=== PATIENT | male | born 1995 | race Caucasian/White ===

== ENCOUNTER 2018-12-31 19:46 | Emergency (ER) | payer OTHER ==
[~2018-12-31] VITALS: Ht 170.2 cm; Wt 65.8 kg
[2018-12-31] MEDS ORDERED: HALOPERIDOL LACTATE INJ 5 MG/ML VIAL ONE (19:56)
[2018-12-31 20:29] LABS: BASOPHILS # (AUTO) 0.1 /CMM (0.0-0.2); BASOPHILS % (AUTO) 0.5 % (0.0-2.0); EOSINOPHILS % (AUTO) 0.2 % (0.0-6.0); HEMATOCRIT 47 % (39-51); HEMOGLOBIN 15.6 g/dL (13.5-17.5); LYMPHOCYTES # (AUTO) 1.3 /CMM (0.8-4.8); LYMPHOCYTES % (AUTO) 10.1 % (20.0-44.0); MEAN CORPUSCULAR HGB CONC 33 g/dl (31.0-36.0); MEAN CORPUSCULAR VOLUME 91 fL (80-96); MONOCYTES # (AUTO) 0.7 /CMM (0.1-1.30); MONOCYTES % (AUTO) 5.7 % (2.0-12.0); NEUTROPHILS # (AUTO) 10.4 /CMM (1.8-8.9); NEUTROPHILS % (AUTO) 83.5 % (43.0-81.0); PLATELET COUNT (AUTO) 320 /CMM (150-450); RED BLOOD CELL COUNT(AUTO) 5.13 MIL/uL (4.5-6.0); WHITE BLOOD COUNT (AUTO) 12.5 K/uL (4.3-11.0)
[2018-12-31 20:36] LABS: CALCIUM, SERUM 9.4 mg/dL (8.5-10.1); CARBON DIOXIDE 18 mmol/L (21-32); CHLORIDE 103 mmol/L (98-107); CREATININE 1.4 mg/dL (0.6-1.3); GLUCOSE 189 mg/dL (74-106); POTASSIUM 3.9 mmol/L (3.5-5.1); SODIUM SERUM 142 mmol/L (136-145); UREA NITROGEN, BLOOD 8 mg/dL (7-18)
[2018-12-31 20:42] LABS: ALANINE AMINOTRANSFERASE 20 U/L (12-78); ALBUMIN 4.9 g/dL (3.4-5.0); ALCOHOL, BLOOD < 3 mg/dL (0-0); ALKALINE PHOSPHATASE 106 U/L (46-116); ASPARTATE AMINOTRANSFERASE 18 U/L (15-37); BILIRUBIN,DIRECT 0.1 mg/dL (0.0-0.2); BILIRUBIN,TOTAL 0.4 mg/dL (0.2-1.0); SALICYLATE 1.7 mg/dL (2.8-20.0); TOTAL PROTEIN, SERUM 8.1 g/dL (6.4-8.2)
[2018-12-31] MEDS: IV NS 0.9% 1,000 ML BAG IV ONE (20:42)
[2018-12-31 20:43] LABS: ACETAMINOPHEN < 5 ug/ml (10-30)
[2018-12-31 21:06] LABS: APPEARANCE,URINE Clear (CLEAR); BILIRUBIN,URINE Negative (NEGATIVE); BLOOD, URINE Small Ery/uL (NEGATIVE); COLOR,URINE Yellow (YELLOW); KETONES,URINE Negative (NEGATIVE); LEUKOCYTE ESTERASE ,URINE Negative (NEGATIVE); NITRITE, URINE Negative (NEGATIVE); PH,URINE 6.5 (5.0-8.0); PROTEIN,URINE 100 mg/dl (NEGATIVE); UGLUCOSE Negative (NEGATIVE); UROBILINOGEN,URINE 0.2 EU/dL (0.2)
[2018-12-31 21:09] LABS: BACTERIA,URINE Rare /HPF (None Seen); MUCUS,URINE Few /LPF (None Seen); SQUAMOUS EPITHELIAL CELL,UR Rare /HPF (None Seen); URINE AMORPHOUS URATE Few /HPF (None Seen); WBC,URINE 0-2 /HPF (0-3)
[2019-01-01 07:18] VITALS: BP 126/79
== END 2019-01-01 07:18 | disposition home or self-care (01) ==
LOC: EDBD 19:53 → ER 19:53
DX: S50.812A Abrasion of left forearm, initial encounter (principal); S60.512A Abrasion of left hand, initial encounter; S60.511A Abrasion of right hand, initial encounter; S40.212A Abrasion of left shoulder, initial encounter; F15.10 Other stimulant abuse, uncomplicated; F12.90 Cannabis use, unspecified, uncomplicated; R41.82 Altered mental status, unspecified; R45.1 Restlessness and agitation; R00.0 Tachycardia, unspecified; W22.8XXA Striking against or struck by other objects, initial encounter; Y93.89 Activity, other specified; Y92.411 Interstate highway as the place of occurrence of the external cause; Y99.8 Other external cause status
CPT/HCPCS: 36415; 70450-TC; 71250-TC; 72125-TC; 80048-TC; 80076-TC; 80305; 81000-TC; 85025-TC; G0480; J1630; J7030